=== PATIENT | female | born 1945 | race Asian ===

== ENCOUNTER 2019-02-13 10:27 | Emergency (ER) | payer MEDICARE ==
[~2019-02-13] VITALS: Ht 165.1 cm; Wt 68.2 kg
[2019-02-13] MEDS ORDERED: BIOT1CAP2 PO (10:41)
[2019-02-13] MEDS ORDERED: GNP1000C11 PO (10:41)
[2019-02-13] MEDS ORDERED: SIMV40TA2 (10:41)
[2019-02-13] MEDS ORDERED: VITAD1000T PO (10:41)
[2019-02-13] MEDS ORDERED: XALA0.007 (10:41)
[2019-02-13] MEDS ORDERED: IBUP80TA (10:41)
[2019-02-13] MEDS ORDERED: FISH1000 PO (10:41)
[2019-02-13] MEDS ORDERED: MULTCAP PO (10:41)
[2019-02-13] MEDS ORDERED: FLUORESCEIN OPHTH 1 MG STRIP OD ONE (11:15)
[2019-02-13] MEDS ORDERED: TETRACAINE 0.5% OPHTH SOLN 4ML OD ONE (11:15)
[2019-02-13 12:20] VITALS: BP 114/61
== END 2019-02-13 12:21 | disposition home or self-care (01) ==
LOC: M ED 10:27
DX: H11.31 Conjunctival hemorrhage, right eye (principal); H40.059 Ocular hypertension, unspecified eye; Z88.0 Allergy status to penicillin; Z88.5 Allergy status to narcotic agent

== ENCOUNTER → 2022-03-27 | Outpatient (CLI) | payer MEDICARE ==
[~2022-03-27] MED LIST: BIOT1CAP2 PO; CHOL100029 PO; FISH1000 PO; GNP1000C11 PO; IBUP80TA; MULTCAP PO; SIMV40TA20; XALA0.007
== END ==
LOC: M PLAIMG 12:45
PROVIDERS: ATTEND Family Medicine
DX: F45.8 Other somatoform disorders (principal); G50.1 Atypical facial pain

== ENCOUNTER → 2024-02-23 | Outpatient (CLI) | payer MEDICARE ==
[~2024-02-23] MED LIST changes: +E-Z-GAS II EFFERVESCENT PACKET (SODIUM BICARB./CITRIC ACID/SIMETHICONE) As Ordered ONE; +E-Z-HD 98% w/w 340GM SUSP BTL As Ordered ONE; +E-Z-PAQUE 96% w/w SUSP 176GM BTL As Ordered ONE
== END ==
LOC: M RAD 08:46
PROVIDERS: ATTEND Family Medicine
DX: K21.9 Gastro-esophageal reflux disease without esophagitis (principal); K44.9 Diaphragmatic hernia without obstruction or gangrene